=== PATIENT | female | born 1990 | race American Indian/Alaskan Native ===

== ENCOUNTER 2021-08-23 07:49 | Day surgery (SDC) | payer MEDICAID ==
[~2021-08-23 07:49] MED LIST: ceFAZolin/Water 2 GM/20 ML 2 GM/20 ML SYRINGE IV NR
[2021-08-23] MEDS ORDERED: LACTATED RINGERS 1,000 ML ONE (08:28)
[2021-08-23] MEDS ORDERED: ONDANSETRON 4 MG/2 ML INJ IV PRN (08:49)
[2021-08-23] MEDS ORDERED: HYDROmorphone 0.5 MG/0.5 ML INJ IV PRN ×2 (08:49)
--- NOTE | 2021-08-23 08:50 | Anesthesia Day of Surgery ---
Anesthesia Day of Surgery - Day of Surgery Patient Examined: Yes Patient H&P Reviewed: Yes Patient is NPO: Yes
--- NOTE | 2021-08-23 08:51 | Anesthesia Consultation ---
Anesthesia Consult and Med Hx Date of service: 08/23/21 - Airway Anesthetic Teeth Evaluation: Good ROM Head & Neck: Adequate Mental/Hyoid Distance: Adequate Mallampati Class: Class II Intubation Access Assessment: Good - Pre-Operative Health Status ASA Pre-Surgery Classification: ASA2 Proposed Anesthetic Plan: General - Pulmonary Hx Smoking: No Hx Sleep Apnea: No - Central Nervous System Hx Psychiatric Problems: No - Gastrointestinal Hx Gastroesophageal Reflux Disease: No - Hematic Hx Sickle Cell Disease: No - Other Systems Hx Alcohol Use: No Hx Substance Use: No Hx Cancer: No Hx Obesity: Yes (BMI 38)
[2021-08-23] MEDS ORDERED: LACTATED RINGERS 1,000 ML IV SCH (09:00)
[2021-08-23] MEDS ORDERED: ceFAZolin/STERILE WATER 2 GM/20 ML SYRINGE IV NR (09:00)
[2021-08-23] MEDS ORDERED: MIDAZOLAM 2 MG/2 ML INJ IV NR (09:00)
[2021-08-23] MEDS ORDERED: ceFAZolin/Water 2 GM/20 ML 2 GM/20 ML SYRINGE IV ONE (09:08)
[2021-08-23] MEDS ORDERED: fentaNYL 100 MCG/2 ML INJ ONE (09:29)
[2021-08-23] MEDS ORDERED: propofoL 200 MG/20 ML VIAL IV ONE (09:29)
[2021-08-23] MEDS ORDERED: LIDOCAINE MPF (2%) 20 MG/1 ML VIAL 5 ML ONE (09:29)
[2021-08-23] MEDS ORDERED: BUPIVACAINE/PF (0.5%) 5 MG/1 ML 30 ML VIAL INFILTRATI ONE ×2 (09:30→10:24)
[2021-08-23] MEDS ORDERED: LIDOCAINE 2%/EPINEPHRINE 1:100,000 VIAL (20 ML) INFILTRATI ONE ×2 (09:30→10:24)
[2021-08-23] MEDS ORDERED: SODIUM CHLORIDE 0.9% IRR 1,500 ML BOTTLE IR ONE (10:25)
[2021-08-23] MEDS ORDERED: SUGAMMADEX SODIUM 200 MG/2 ML VIAL IV ONE (10:34)
[2021-08-23] MEDS ORDERED: dexAMETHasone 20 MG/5 ML VIAL ONE (10:36)
[2021-08-23] MEDS ORDERED: KETOROLAC 30 MG/1 ML INJ ONE (10:37)
[2021-08-23] MEDS ORDERED: ROCURONIUM 50 MG/5 ML INJ IV ONE (10:37)
[2021-08-23] MEDS ORDERED: ONDANSETRON 4 MG/2 ML INJ ONE (10:37)
--- NOTE | 2021-08-23 10:59 | Operative Report ---
Operative Report Operative Report: Date of procedure: 08/23/2021 Preoperative diagnosis: 15 cm lipoma of the back Postop diagnosis same procedure: Excision of 15 x 10 cm lipoma of the back Surgeon: Dr. Moody Optimization Manager: Dr. Bocanegra Anesthesia: General endotracheal anesthesia Estimated blood loss: 20 cc Specimen: 15 x 10 cm lipoma Findings: This is a 31-year-old -[place] Citizen lady with complaints of a large lipoma of the back. Timeouts are completed consent on the chart. The patient is on the left-sided down lateral cubitus position. The back is prepped with ChloraPrep and draped in the sterile fashion. An elliptical transverse incision is made over the center of the lipoma. It is incised with a #10 scalpel. Electrocautery was then used to dissect this off to take tissue around the lipoma. Lipoma was completely excised. Hemostasis is obtained with electrocautery. The wound is irrigated with copious months of saline. It is closed in layers with 301 2-0 Vicryl. Skin is closed with 4-0 Monocryl and Dermabond.
--- NOTE | 2021-08-23 11:05 | Short Stay Summary ---
Short Stay Documentation Date of service: 08/23/21 - History H&P: obtained from office - Allergies and Medications Current Medications: Allergies No Known Allergies Allergy (Verified 08/09/21 12:58) Home Medications Medication Instructions Recorded Confirmed Last Taken Type No Known Home Medications [No 08/09/21 08/09/21 Unknown History Reported Home Medications] Active Medications Cefazolin Sodium (Cefazolin/Sterile Water 2 Gm/20 Ml Syringe) 2 gm IV PREOP NR Stop: 08/23/21 15:00 Hydromorphone HCl (Hydromorphone 0.5 Mg/0.5 Ml Inj) 0.25 mg IV Q10MIN PRN PRN Reason: Pain, Moderate (4-6) Stop: 08/23/21 20:00 Hydromorphone HCl (Hydromorphone 0.5 Mg/0.5 Ml Inj) 0.5 mg IV Q10MIN PRN PRN Reason: Pain , Severe (7-10) Stop: 08/23/21 20:00 Lactated Ringer's (Lactated Ringers) 1,000 mls @ 125 mls/hr IV DIRECT TEJAS Last Admin: 08/23/21 08:40 Dose: 125 mls/hr Midazolam HCl (Midazolam 2 Mg/2 Ml Inj) 2 mg IV PREOP NR Stop: 08/23/21 23:59 Last Admin: 08/23/21 09:30 Dose: 2 mg - Physical exam General appearance: no acute distress Integumentary: other (15cm by 10cm lipoma of the back.) - Brief post op/procedure progress note Date of procedure: 08/23/21 Pre-op diagnosis: large lipoma of the back Post-op diagnosis: same Procedure: excision of lipoma of the back Anesthesia: GETA Findings: 15cm lipoma of the back Surgeon: HEMANT MANCILLA Estimated blood loss: minimal Pathology: list (lipoma) - Disposition Condition at discharge: Good Disposition: 01 HOME / SELF CARE / HOMELESS Short Stay Discharge Plan Activity: no restrictions Weight Bearing Status: Full Weight Bearing Diet: regular Wound: open to air, other (may shower today) Follow up with: PRIMARY MD ADRIANNA [Primary Care Provider] - 7 Days HEMANT MANCILLA MD [Staff Physician] - 7 Days Prescriptions: HYDROcodone/APAP 5-325 [[facility] 5/325] 1 each PO Q6HR PRN #7 tablet PRN Reason: Pain
[2021-08-23 12:20] VITALS: BP 105/70
--- NOTE | 2021-08-23 16:11 | Post Anesthesia Evaluation ---
- Post Anesthesia Evaluation Patient Participated: Yes Airway Patent: Yes Stable Respiratory Function: Yes Nausea/Vomiting: No Temp > 96.8F: Yes Pain Manageable: Yes Adequeate Hydration: Yes Anesthesia Complications: No Block Receding Appropriately: Not Applicable Patient on Ventilator: No
== END 2021-08-23 07:50 | disposition home or self-care (01) ==
LOC: OR 07:49
PROVIDERS: ATTEND Surgery
DX: D17.1 Benign lipomatous neoplasm of skin and subcutaneous tissue of trunk (principal); E66.9 Obesity, unspecified; Z68.38 Body mass index [BMI] 38.0-38.9, adult; Z79.899 Other long term (current) drug therapy; Z98.890 Other specified postprocedural states
CPT/HCPCS: 21931; 81025; 88304; J0690; J1100; J1885; J2250; J2405; J2704; J3010; J3490; J7120